=== PATIENT | female | born 1985 | race Caucasian/White ===

== ENCOUNTER → 2017-06-22 | Outpatient (CLI) | payer BC, OTHER ==
--- NOTE | 2017-06-22 10:50 | RAD ---
Radionuclide hepatobiliary scan with gallbladder ejection fraction, 06/22/2017: History: Abdominal pain and nausea Following IV injection of 5.5 mCi of technetium 99m Choletec there was prompt uptake of the radionuclide from the blood stream by the liver. Bile duct and gallbladder activity is evident at 10 minutes. Small bowel activity is evident at 15 minutes. Additional imaging of the gallbladder was performed following oral ingestion of 8 ounces of the Boost supplement. Kinevac is currently unavailable. The gallbladder ejection fraction was calculated at 87%. IMPRESSION: 1. Normal radionuclide hepatobiliary scan. 2. The gallbladder ejection fraction is 87%.
== END | disposition home or self-care (01) ==
LOC: NM 07:43
PROVIDERS: ATTEND Internal Medicine Gastroenterology
DX: R10.84 Generalized abdominal pain (principal); R11.2 Nausea with vomiting, unspecified
CPT/HCPCS: 78226; 96374; 96375; A9537